=== PATIENT | female | born 1970 | race African-American/Black ===

== ENCOUNTER 2019-08-09 22:17 | Inpatient (IN) | payer BC, SELFPAY ==
[2019-08-09] MEDS ORDERED: HYDROcodone/Acetaminophen 5/325 mg Tablet ONE (23:34)
--- NOTE | 2019-08-10 00:09 | PDOC.FPRHP ---
- History of Present Illness Chief Complaint: Full-Body Pain History of Present Illness: Mrs. Monk is a 48 y/o female who presents from an outside ED following evaluation of full-body pain. The patient states that she has " hurt all over" for approximately 3 days and through that she had the flu, which prompted her presentation to the ED. She admitted to associated symptoms of subjective fevers, chills, N/V and continued diffuse pain. While being evaluated , she was found to have a UA suspicious for infection, and subsequent work-up revealed left-sided pyelonephritis and hydronephrosis secondary to mass effect from a uterine fibroid, and was subsequently transferred to [facility]. She denies any knowledge of gynecologic dysfunction in the past, as well as a history of frequent UTIs or kidney stones. She denies abnormal weight loss, changes in vision or frequent headaches, chest pain, SOB, dysuria, hematuria or bloody stools. Her neice and sister were present at the time of evaluation. ED Course: A CT scan performed at an outside hospital confirmed the findings mentioned in the HPI. The patient was offered [place] 5/325 for pain but is unable to tolerate pills at her baseline. - Allergies/Adverse Reactions Allergies Allergy/AdvReac Type Severity Reaction Status Date / Time No Known Allergies Allergy Unverified 08/10/19 01:43 - Home Medications Comments: The patient denied taking any home medications. - History PMHx: 2 SVDs, Menometrorrhagia PSHx: x1, Tubal Ligation FHx: Strong family history for breast cancer in multiple family members. Social: Patient denies EtOH, tobacco and drug abuse. Code: Full - Review of Systems General: reports: fever/chills, weight/appetite/sleep changes, fatigue. denies : night sweats Eyes: denies: eye pain, vision changes ENT: denies: nasal congestion, rhinorrhea Respiratory: denies: cough, congestion, shortness of breath, exercise intolerance Cardiovascular: denies: chest pain, palpitation, edema Gastrointestinal: reports: nausea, vomiting, abdominal pain. denies: diarrhea, constipation, GI bleeding Genitourinary: denies: dysuria, polyuria, discharge Skin: denies: rashes, lesions, itching Musculoskeletal: reports: pain, tenderness Neurological: denies: syncope, weakness - Vital signs BP: [105/59] HR: [74] RR: [20] Tmax: [99.7] Pox: [100]% on [Room] Wt: [70 kg] - Physical Exam Constitutional: other (Patient was curled up in her hospital bed and sporadically moaning in pain.) HEENT: normocephalic and atraumatic, PERRLA, conjunctiva clear, no scleral icterus, grossly normal vision, grossly normal hearing, normal nasal mucosa, MMM , oropharynx clear Neck: supple, FROM, trachea midline, no LAD Chest: no-tender to palpation, no lesions Heart: RRR, normal S1/S2, no murmurs/rubs/gallops, pulses present, no edema Lungs: CTAB, no respiratory distress, good air movement, no rales/rhonchi, no wheezing, no retractions Abdomen: soft, non-tender, bowel sounds present, other (Uterus palpable at the level of the umbilicus, irregular) Musculoskeletal: normal structure, ROM grossly normal Neurological: no focal deficit Skin: no rash/lesions, capillary refill <2 seconds, no jaundice Heme/Lymphatic: no unusual bruising or bleeding, no purpura, no petechia, no LAD Psychiatric: intact recent and remote memory FMR H&P: Results - Labs Result Diagrams: 08/10/19 11:59 08/10/19 02:12 FMR H&P: A/P - Problem List (1) Pyelonephritis Current Visit: Yes Status: Acute Code(s): N12 - TUBULO-INTERSTITIAL NEPHRITIS, NOT SPCF ACUTE OR CHRONIC (2) Uterine fibroid Current Visit: Yes Status: Acute Code(s): D25.9 - LEIOMYOMA OF UTERUS, UNSPECIFIED (3) Anemia Current Visit: Yes Status: Acute Code(s): D64.9 - ANEMIA, UNSPECIFIED - Plan Patient is a 48 y/o female admitted to the Medical Floor for pyelonephritis. 1. Pyelonephritis -Likely 2/2 to compressive effects from uterine fibroid -Urology contacted by ED physician - did not indicate emergent need for stenting , will evaluate in AM -UA (Med): +Bacteria, +RBCs -UCx (Med): Pending -CT ABD (Med): Left-sided pyelonephritis with hydronephrosis -WBCs: 13.4 -Patient does not appear septic at this time -Administered Ceftriaxone and Levaquin at outside ED - will continue Ceftriaxone 1 gm Q24H -LR @ 110 ml/hr -Acetaminophen Elixir 650 mg po Q4H for pain - patient cannot tolerate pills -Zofran 4 mg IV Q4H for nausea - patient cannot tolerate pills 2. Uterine Fibroid -Likely responsible for #1 -Patient admits to classic symptoms of menometrorrhagia -Patient may require OBGYN follow-up in an outpatient setting for curative hysterectomy 3. Anemia -HPI suspicious for blood loss anemia 2/2 #2 -H.2 on 08/10 -Peripheral smear indicated microcytic, hypochromic RBCs -Iron Studies: Pending -Patient is currently tachycardic - consider transfusing if Code: Full Diet: Heart Healthy incl. Low Sodium Activity: Ad Aster VTE PPx: Lovenox 40 mg SC Daily w/ SCDs Dispo: Patient is currently admitted to the Medicine Floor for pyelonephritis. Continue IVF and antibiotics per above. Consult Urology and OBGYN Surgery for interim management of hydronephrosis and possible hysterectomy on an outpatient basis. Expected LOS > 48H. FMR H&P: Upper Level - Pertinent history 48 y/o F no PMHx presents to the ER as a [facility] for L pyelonephritis and possible L ureter obstruction from enlarged uterus with mass. The patient reports the past couple of days she has been having N/V, F/C. She denies any dysuria, hematuria, back pain, abdominal pain. She reports urinary frequency, but that has been going on for years. She does not have a doctor and has not seen an PHOTOCOPYING EQUIPMENT REPAIRER. She reports regular periods with painful cramps and heavy cycles. She is not on any form of contraception. - Pertinent findings BP: 105/59 (Right Arm), MAP: 74, Pulse: 117, Resp: 20 (Non-Labored), Temp: 99.7 (Oral), O2 sat: 100 on (Room Air) PE: Gen - alert, oriented, NAD HEENT - MMM CV - RRR, no murmurs Lungs - CTAB, no wheezes Abd - soft, NTTP Back - No CVAT Labs: WBC 17.3, Hb 7.2, MCV 63, Na 134, BUN 13, Cr 1.2, GFR 51. UA: blood, nitrite, LE, bacteria positive. CT abd/pelvis: enlarged uterus with numerous areas of low attenuation, fibroid uterus vs neoplasm. Bilateral adnexal cystic lesions. L hydronephrosis 2/2 pyelonephritis concern for L ureter compression from enlarged uterus. - Plan Date/Time: 08/10/19 0008 I, Leidy Tillman MD, PGY-3, have evaluated this patient and agree with findings/ plan as outlined by international organizer resident. Pertinent changes/additions are listed here. 1. Acute L Pyelonephritis Pt with UA findings and CT findings consistent for pyelonephritis. Concern on CT for compression of distal L ureter from uterus. -Admit to medical -Urology was called by ED and they determined the compression did not require urgent intervention at this time, but would like to be consulted in AM -Pt s/p rocephin and levaquin. Pt is not very ill appearing and asymptomatic at this time so do not think coverage with meropenem is required. Will continue rocephin and consult urology in AM. -Urine cx and Blood cx 2. Uterine fibroids CT concerning for fibroids vs neoplasm. Pt with h/o heavy menstrual periods and severe menstrual cramps which would fit picture of fibroids -Will consult PHOTOCOPYING EQUIPMENT REPAIRER in AM -Pt may need therapy in setting of heavy menstrual bleeding, possible compression from fibroid, and severe anemia 3. Microcytic Anemia Concerning for iron deficiency anemia in the setting of pt with heavy menstrual bleeding and microcytic -Will check iron studies -Start pt on iron -Monitor Hb, likely chronically low as pt asymptomatic from this 4. [place] vs CKD Pt with unknown baseline -Will monitor and assess for improvement once infection is treated Dispo: Admit to Medical LOS: Likely greater than 2 days Addendum - Attending - Attending Attestation Date/Time: 08/10/19 3456 I personally evaluated the patient and discussed the management with the team. I agree with the History, Examination, Assessment and Plan documented above with any addition or exceptions noted below. Patient doing well with no complaint on my examination. She has no CVA pain, no abdominal pain, no body aches, f/c/n/v. No vaginal discharge. On exam she has no CVAT, abd soft NTTP with palpable uterus. Labs reviewed. I am unable to find the CSH UA. Sepsis 2/2 presumed UTI, I see no hydronephrosis -ceftriaxone -await cultures -urology was already consulted Pyo/hydrosalpinx -GC/c ordered, but low suspicion for PID Fibroids with severe iron deficiency anemia -fresh foods cake decorator has been consulted -xfuse 1 U PRBC
[2019-08-10] MEDS ORDERED: Ondansetron PF 4 MG/2 ML Vial IVP PRN (01:44)
[2019-08-10] MEDS ORDERED: Ondansetron ODT 4 MG TAB SL PRN (01:44)
[2019-08-10] MEDS ORDERED: Acetaminophen 325 MG TAB PO PRN (01:44)
[2019-08-10] MEDS ORDERED: HYDROcodone/Acetaminophen 5/325 mg Tablet PO PRN ×2 (01:44)
[2019-08-10] MEDS ORDERED: Sodium Chloride 0.9% 1,000 ML IV SCH (01:45)
[2019-08-10] MEDS ORDERED: Acetaminophen 325 MG/10.15 ML UDCUP PO PRN (01:45)
[2019-08-10 02:21] VITALS: BMI 30.2
[2019-08-10 02:28] LABS: Reticulocyte Count 1.4 % (0.5-1.5)
[2019-08-10 02:29] LABS: #Lymphocytes 0.8 thou/uL (1.20-3.40); #Monocytes 1.1 thou/uL (0.11-0.59); #Neutrophils 11.4 thou/uL (1.40-6.50); %Basophils 0.1 % (0.0-1.0); %Lymphocytes 6.1 % (21.0-51.0); %Monocytes 8.5 % (0.0-10.0); %Neutrophils 85.3 % (42.0-75.0); Hemoglobin 6.8 g/dL (12.0-16.0); Mean Corpuscular HGB CONC 29.7 g/dL (32.0-36.0); Mean Corpuscular Hemoglobin 18.3 pg (27.0-31.0); Mean Corpuscular Volume 61.7 fL (78.0-98.0); Mean Platelet Volume 5.4 fL (7.4-10.4); Platelet Count 230 thou/uL (130-400); RBC Distribution Width 17.8 % (11.5-14.5); Red Blood Cell (RBC) Count 3.69 mill/uL (4.20-5.40); Reflex for Review?? NO; White Blood Cell (WBC) Count 13.4 thou/uL (4.8-10.8)
[2019-08-10 02:41] LABS: Iron 9 ug/dL (50-170); Iron Binding Capacity, Total 293 mcg/dL (265-497)
[2019-08-10 02:42] LABS: Iron 9 ug/dL (50-170); Iron Binding Capacity, Total 293 mcg/dL (265-497)
[2019-08-10 02:50] LABS: ALT (SGPT) 8 U/L (8-55); AST (SGOT) 19 U/L (5-34); Albumin 3.3 g/dL (3.5-5.0); Alkaline Phosphatase 63 U/L (40-110); Anion Gap 15 mmol/L (10-20); BUN (Urea Nitrogen) 12 mg/dL (7.0-18.7); Bilirubin, Total 0.3 mg/dL (0.2-1.2); Calc. Creatinine Clearance 82 mL/min (70-130); Calcium 8.1 mg/dL (7.8-10.44); Carbon Dioxide 18 mmol/L (22-29); Chloride 107 mmol/L (98-107); Estimated GFR-MDRD 79; Globulin 3.5 g/dL (2.4-3.5); Glucose 112 mg/dL (70-105); Potassium 3.5 mmol/L (3.5-5.1); Protein, Total 6.8 g/dL (6.0-8.3); Sodium 136 mmol/L (136-145)
[2019-08-10 03:00] LABS: Hypochromia SLIGHT = 6-15 cells (100X) (0-5/hpf); MDiff Complete? YES; Microcytosis MODERATE=15-30 cells (100X) (0-5/hpf); Platelet Morphology Comment Appears Adequate; Target Cells SLIGHT = 2-5 cells (100X) (0-1/hpf)
[2019-08-10] MEDS ORDERED: Ondansetron ODT 4 MG TAB PO PRN (03:17)
[2019-08-10] MEDS: Lactated Ringer's 1,000 ML IV SCH ×3 (06:25→21:08)
[2019-08-10] MEDS: Enoxaparin Sodium 40 MG/0.4 ML SYRINGE SC SCH (11:33)
[2019-08-10] MEDS: Famotidine/PF 20 mg/2ml Vial SLOW IVP SCH ×2 (11:33→21:04)
[2019-08-10 12:12] LABS: Hemoglobin 8.2 g/dL (12.0-16.0)
[2019-08-10] MEDS: cefTRIAXone\\ROCEPHIN 1 GM in Sodium Chloride 0.9% 100 ML IVPB SCH (13:32)
--- NOTE | 2019-08-10 13:32 | ULT ---
Exam: Pelvic ultrasound HISTORY: Diffuse abdominal pain greater in the region of the right lower quadrant. COMPARISON: CT abdomen and pelvis on 08/30/2009. TECHNIQUE: Multiple grayscale and color Doppler images were obtained in a transabdominal and transvag inal pelvic ultrasound. Spectral analysis of the Doppler waveforms of the ovaries were performed. FINDINGS: CERVIX: Not well visualized as there is prominent shadowing in the region of the cervix. UTERUS: Enlarged measuring 16.5 cm x 9.2 cm x 2.3 cm. There is a very large heterogeneous mass occupy ing the majority of the body and fundus of the uterus. Heterogeneous mass was seen in the uterus on prior CT examination. Findings are likely related to a large uterine fibroid with is larger in size c ompared to the prior study. ENDOMETRIAL STRIPE: Endometrial stripe is unable to be discerned due to the large heterogeneous mass in the uterus. There is no fluid or fluid collection seen in the expected location of the endometrium. RIGHT OVARY: Not visualized. LEFT OVARY:Not definitively visualized, but there is a anechoic cystic structure seen in the left adn exal region measuring 4.6 cm which may represent a left ovarian cyst. Definitive ovarian tissue is difficult to visualized. There is an arterial waveform seen on Doppler evaluation at the periphery of this left adnexal cyst. This may represent an ovarian cyst. This is difficult to further evaluated on this exam. There are 2 small anechoic cystic structures seen posterior to the uterus largest measuring 4.7 cm. T hese anechoic cystic structures are difficult to connect to one another. Dilated fluid-filled tubular structures were seen in each adnexal region on study in 2010. This could be related to hydros alpinx, but but this may represent 2 separate cystic structures as opposed to a single dilated appearing cystic structure. No free fluid is seen in the cul-de-sac. IMPRESSION: 1. Enlarged uterus with very large heterogeneous mass occupying the majority of the uterus likely due to large uterine fibroid which has enlarged compared to study in 2010. 2. The right ovary is not visualized. A cyst is seen in the left adnexal region in the expected locat ion left ovary, and this may represent a left ovarian cyst. However normal ovarian tissue is not definitively visualized. Doppler evaluation of the periphery of this cystic lesion does demonstrate a rterial and venous flow. 3. Anechoic cystic structures posterior to the uterus. This could potentially represent hydrosalpinx, but the cystic structures are difficult to connect to one another on real time sonographic evaluation. Findings may be related to cystic lesions posterior to the uterus. 4. Patient has MRI of the pelvis scheduled, and above findings would be better delineated on that exa mination.
--- NOTE | 2019-08-10 19:21 | CON ---
DATE OF CONSULTATION: 08/10/2019 CONSULTING PHYSICIAN: Lopez Rehman MD REASON FOR CONSULTATION: Gynecologic consultation for fibroids and menorrhagia. HISTORY OF PRESENT ILLNESS: Ms. Monk is a 48-year-old 4, para 3, AB 1, x1, status post BTL, who was admitted for pyelonephritis. She was incidentally found to be anemic with indices that appeared to be consistent with chronic anemia and found to have uterine mass. I was consulted for anemia history and mass. BURIAL VAULT MAKER HISTORY: The patient states it has been many years since she had a Pap smear. No history of dysplasia. No history of STDs. x2. x1. BTL x1. The patient reports she has no intermenstrual bleeding. She reports she has monthly menses with flow requiring a large maxi pad q.1 to 2 hours for 3 days a month. PAST MEDICAL HISTORY: None. PAST SURGICAL HISTORY: and tubal. ALLERGIES: DENIES. MEDICATIONS: None. SOCIAL HISTORY: Denies tobacco, alcohol, or IV drug abuse. FAMILY HISTORY: Positive for breast cancer between ages of 38 and 58 and multiple female family members. PHYSICAL EXAMINATION: VITAL SIGNS: Temperature 99.6, pulse 106, respirations 18, blood pressure 120/78. HEENT: Within normal limits. LUNGS: Clear to auscultation bilaterally. HEART: Regular rate and rhythm. ABDOMEN: Soft and nontender. GENITOURINARY: She has a palpable approximately 10 week size uterus. Well-healed Pfannenstiel incision. PELVIC: Exam deferred as the patient was in medicine room with no available pelvic exam table. EXTREMITIES: Without clubbing, cyanosis, or edema. LABORATORY DATA: The patient's urinalysis in [place] was, by report, consistent with pyelonephritis. Admission hematocrit was 22.8% after IV fluid hydration. She had a white count of 13.4 with a left shift. She had polychromasia and other indices consistent with chronic blood loss. Creatinine was 0.9. Urine culture pending. IMAGING: The patient had a pelvic ultrasound and CT at [place] and a CT at outside facility that revealed a simple ovarian cyst, hydrosalpinx consistent with status post BTL and a large intracavitary calcified and homogeneous mass consistent with a large intracavitary fibroid approximately 10 cm in greatest diameter. 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 Ultrasound appearance and patient's history makes it unlikely that leiomyoma is malignant or represent other pathologic process. The patient's pyelonephritis is likely unrelated to her fibroids as uterus is not big enough to obstruct ureters either on the right or the left. PLAN: 1. IV iron infusion. 2. IV Provera as patient states she cannot take pills. 3. Patient needs to follow up with me or other physician at [facility] [place] as an outpatient for endometrial biopsy and Pap smear and scheduling for hysterectomy. 4. Social work consult as patient is unfunded for surgical intervention at this time. Job ID: [id number]
[2019-08-10] MEDS: Iron Sucrose Complex 500 MG in Sodium Chloride 0.9% 250 ML 250 ML IVPB SCH (21:05)
[2019-08-10] MEDS: medroxyPROGESTERone Acetate 5 MG TAB PO SCH (21:06)
[2019-08-10] MEDS: Acetaminophen 650 MG/20.3 ML UDCUP PO PRN (21:09)
[2019-08-11] MEDS: Acetaminophen 650 MG/20.3 ML UDCUP PO PRN ×2 (02:59→13:51)
--- NOTE | 2019-08-11 05:57 | PDOC.FM ---
- Subjective Subjective: Patient states she is feeling okay this morning. Says that she started her menses overnight, has used 3 pads during the night. Complains of some cramping and lower abdominal pain, worse on the left side. Also says she feels "full"/ constipated. Dr. Rehman saw the patient yesterday and told her they will work on scheduling hysterectomy outpatient. - Objective Vital Signs & Weight: Vital Signs (12 hours) Temp Pulse Resp BP Pulse Ox 08/11/19 05:07 97.9 F 99 19 127/64 97 08/11/19 00:48 97.3 F L 84 19 109/69 99 08/10/19 20:12 99.9 F H 100 20 113/71 99 08/10/19 20:00 99 Weight Weight 70.307 kg Most Recent Monitor Data Heart Rate from ECG 104 NIBP 118/74 Respiration from ECG 16 I&O: 08/09/19 08/10/19 08/11/19 06:59 06:59 06:59 Intake Total 0 Balance 0 Result Diagrams: 08/11/19 06:09 08/11/19 05:59 Phys Exam - Physical Examination Constitutional: NAD HEENT: moist MMs Neck: supple, full ROM Respiratory: no wheezing, no rhonchi, clear to auscultation bilateral Cardiovascular: RRR, no significant murmur Gastrointestinal: soft, no distention, positive bowel sounds TTP LLQ, RLQ, & Suprapubic area Musculoskeletal: no edema, pulses present Neurological: normal sensation, moves all 4 limbs Psychiatric: normal affect, A&O x 3 Skin: no rash, normal turgor Dx/Plan (1) Anemia Code(s): D64.9 - ANEMIA, UNSPECIFIED Status: Acute Qualifiers: Anemia type: iron deficiency Iron deficiency anemia type: chronic blood loss Qualified Code(s): D50.0 - Iron deficiency anemia secondary to blood loss (chronic) (2) Pyelonephritis Code(s): N12 - TUBULO-INTERSTITIAL NEPHRITIS, NOT SPCF ACUTE OR CHRONIC Status: Acute (3) Uterine fibroid Code(s): D25.9 - LEIOMYOMA OF UTERUS, UNSPECIFIED Status: Acute Qualifiers: Uterine leiomyoma location: unspecified location Qualified Code(s): D25.9 - Leiomyoma of uterus, unspecified - Plan Plan: Patient is a 48 y/o female admitted to the Medical Floor for pyelonephritis. #Pyelonephritis, left -concerning for 2/2 to compressive effects from uterine fibroid -Urology contacted by ED physician - did not indicate emergent need for stenting , consult placed, appreciate recs -UA (Med): +Bacteria, +RBCs -UCx (Med): Pending -CT ABD (Med): Left-sided pyelonephritis with hydronephrosis, renal mass vs cyst , lung nodule with reactive lymph nodes, recommended f/u MRI -WBCs: 13.4 -Patient does not appear septic at this time -Administered Ceftriaxone and Levaquin at outside ED - will continue Ceftriaxone 1 gm Q24H -LR @ 110 ml/hr -Acetaminophen Elixir 650 mg po Q4H for pain - patient cannot tolerate pills -Zofran 4 mg IV Q4H for nausea - patient cannot tolerate pills #Uterine Fibroid -Patient admits to classic symptoms of menometrorrhagia -Patient will require OBGYN follow-up in an outpatient setting for curative hysterectomy -Consult SENIOR ASIC ENGINEER, Dr. Rehman-appreciate recs. Ordered iron infusion. Possible hydrosalpinx visualized on CT, wants f/u pelvic U/S. States patient will need outpatient pap and endometrial biopsy prior to hysterectomy. Will need to be set up with social work for funding. Patient starting her menses, start on Medroxyprogesterone 10 mg BID. Can start Tranexamic acid 1000 BID if needed for heavy bleeding. -Pelvic U/S: 16.5 cm x 9.2 cm x 2.3 cm uterus with large heterogenous mass approx. 10 cm in size within uterus c/w fibroid, left ovarian cyst, cystic structures located posterior to uterus concerning for possible hydrosalpinx, recommend f/u MRI #Anemia -HPI suspicious for blood loss anemia 2/2 #2 -H.2 on 08/10-> 6.8 -> 8.2 -Peripheral smear indicated microcytic, hypochromic RBCs -Iron Studies: iron 9, TIBC 293, 3% sat, Ferritin 40.9 -Continue to trend H/H Code: Full Diet: Heart Healthy incl. Low Sodium Activity: Ad Aster VTE PPx: Lovenox 40 mg SC Daily w/ SCDs Dispo: Patient is currently admitted to the Medicine Floor for pyelonephritis. Continue IVF and antibiotics per above. Consulted Urology and OBGYN Surgery for interim management of hydronephrosis and possible hysterectomy on an outpatient basis. Expected discharge in next 24-48 hrs. Addendum - Attending - Attending Attestation Date/Time: 08/11/19 1053 I personally evaluated the patient and discussed the management with the team. I agree with the History, Examination, Assessment and Plan documented above with any addition or exceptions noted below. Continue current management. Await cultures.
[2019-08-11] MEDS: Lactated Ringer's 1,000 ML IV SCH (06:33)
[2019-08-11 06:39] LABS: #Lymphocytes 1.1 thou/uL (1.20-3.40); #Monocytes 1.4 thou/uL (0.11-0.59); #Neutrophils 9.5 thou/uL (1.40-6.50); %Basophils 0.2 % (0.0-1.0); %Eosinophils 0.2 % (0.0-10.0); %Lymphocytes 9.4 % (21.0-51.0); %Monocytes 11.4 % (0.0-10.0); %Neutrophils 78.7 % (42.0-75.0); Hemoglobin 8.2 g/dL (12.0-16.0); Mean Corpuscular HGB CONC 30.7 g/dL (32.0-36.0); Mean Corpuscular Hemoglobin 19.7 pg (27.0-31.0); Mean Corpuscular Volume 64.2 fL (78.0-98.0); Mean Platelet Volume 5.6 fL (7.4-10.4); Platelet Count 243 thou/uL (130-400); RBC Distribution Width 20.5 % (11.5-14.5); Red Blood Cell (RBC) Count 4.19 mill/uL (4.20-5.40); White Blood Cell (WBC) Count 12.1 thou/uL (4.8-10.8)
[2019-08-11 07:07] LABS: ALT (SGPT) 10 U/L (8-55); AST (SGOT) 29 U/L (5-34); Albumin 3.1 g/dL (3.5-5.0); Alkaline Phosphatase 66 U/L (40-110); Anion Gap 11 mmol/L (10-20); BUN (Urea Nitrogen) 8 mg/dL (7.0-18.7); Bilirubin, Total 0.2 mg/dL (0.2-1.2); Calc. Creatinine Clearance 92 mL/min (70-130); Calcium 8.4 mg/dL (7.8-10.44); Carbon Dioxide 23 mmol/L (22-29); Chloride 110 mmol/L (98-107); Estimated GFR-MDRD Greater than 90; Globulin 3.5 g/dL (2.4-3.5); Glucose 105 mg/dL (70-105); Potassium 3.6 mmol/L (3.5-5.1); Protein, Total 6.6 g/dL (6.0-8.3); Sodium 140 mmol/L (136-145)
[2019-08-11 07:07] LABS: Hypochromia MODERATE=16-30 cells (100X) (0-5/hpf); MDiff Complete? YES; Microcytosis MODERATE=15-30 cells (100X) (0-5/hpf); Ovalocytes SLIGHT = 2-5 cells (100X) (0-1/hpf); Platelet Morphology Comment Appears Adequate; Polychromasia SLIGHT = 2-3 cells (100X) (0-2/hpf); Tear Drops SLIGHT = 2-5 cells (100X) (0-1/hpf)
[2019-08-11] MEDS ORDERED: Polyethylene Glycol 3350 17 GM Packet PO PRN (08:53)
[2019-08-11] MEDS ORDERED: Senokot 8.6 MG TAB PO SCH (09:00)
[2019-08-11] MEDS: Iron Sucrose Complex 500 MG in Sodium Chloride 0.9% 250 ML 250 ML IVPB SCH (09:25)
[2019-08-11] MEDS: medroxyPROGESTERone Acetate 5 MG TAB PO SCH ×2 (09:25→20:43)
[2019-08-11] MEDS: Polyethylene Glycol 3350 17 GM Packet PO SCH (09:25)
[2019-08-11] MEDS: Enoxaparin Sodium 40 MG/0.4 ML SYRINGE SC SCH (09:25)
[2019-08-11] MEDS: Famotidine/PF 20 mg/2ml Vial SLOW IVP SCH ×2 (09:25→20:43)
[2019-08-11] MEDS ORDERED: Morphine 4 MG/ML VIAL ONE (13:23)
[2019-08-11] MEDS: cefTRIAXone\\ROCEPHIN 1 GM in Sodium Chloride 0.9% 100 ML IVPB SCH (13:26)
[2019-08-11] MEDS ORDERED: Morphine 2 MG/ML SYRINGE SLOW IVP SCH (14:15)
--- NOTE | 2019-08-12 05:55 | PDOC.FM ---
- Subjective Subjective: Patient states she feels better this morning. Her abdominal pain/cramping has been controlled with liquid Tylenol. Says she slept well overnight. She has been tracking how many pads she is using for menses, used 4 pads in span of 7 hours overnight. - Objective Vital Signs & Weight: Vital Signs (12 hours) Temp Pulse Resp BP Pulse Ox 08/12/19 00:42 97.8 F 89 16 100/62 100 08/11/19 20:00 100 08/11/19 19:46 98.5 F 97 16 106/70 100 Weight Weight 70.307 kg Most Recent Monitor Data Heart Rate from ECG 104 NIBP 118/74 Respiration from ECG 16 I&O: 08/10/19 08/11/19 08/12/19 06:59 06:59 06:59 Intake Total 1300 120 Balance 1300 120 Result Diagrams: 08/12/19 05:57 08/11/19 05:59 Phys Exam - Physical Examination Constitutional: NAD HEENT: moist MMs Neck: supple, full ROM Respiratory: no wheezing, no rales, no rhonchi, clear to auscultation bilateral Cardiovascular: RRR, no significant murmur Gastrointestinal: soft, non-tender, positive bowel sounds palpable uterus Musculoskeletal: no edema, pulses present Neurological: normal sensation, moves all 4 limbs Psychiatric: normal affect, A&O x 3 Skin: no rash, normal turgor Dx/Plan (1) Anemia Code(s): D64.9 - ANEMIA, UNSPECIFIED Status: Acute Qualifiers: Anemia type: iron deficiency Iron deficiency anemia type: chronic blood loss Qualified Code(s): D50.0 - Iron deficiency anemia secondary to blood loss (chronic) (2) Pyelonephritis Code(s): N12 - TUBULO-INTERSTITIAL NEPHRITIS, NOT SPCF ACUTE OR CHRONIC Status: Acute (3) Uterine fibroid Code(s): D25.9 - LEIOMYOMA OF UTERUS, UNSPECIFIED Status: Acute Qualifiers: Uterine leiomyoma location: unspecified location Qualified Code(s): D25.9 - Leiomyoma of uterus, unspecified - Plan Plan: Patient is a 48 y/o female admitted to the Medical Floor for pyelonephritis. #Pyelonephritis, left -concerning for 2/2 to compressive effects from uterine fibroid although compression felt to be less likely at this time -Urology contacted by ED physician - did not indicate emergent need for stenting , consult placed, appreciate recs -UA (Med): +Bacteria, +RBCs -UCx (Med): Pending, checked with Med lab and [facility] lab on 08/11 and unable to find culture. Med lab states they have no record of the patient in [employer]. -CT ABD (Med): Left-sided pyelonephritis with hydronephrosis, renal mass vs cyst , lung nodule with reactive lymph nodes, recommended f/u MRI -WBCs: 13.4 -> 12 -Patient does not appear septic at this time -Administered Ceftriaxone and Levaquin at outside ED - will continue Ceftriaxone 1 gm Q24H for 3 total doses given unable to obtain cultures & patient's intolerance of taking pills. Will transition to 7 day course of PO antibiotic today with instructions to crush pills before taking. -LR @ 110 ml/hr--discontinued on 08/11 -Acetaminophen Elixir 650 mg po Q4H for pain - patient cannot tolerate pills -Zofran 4 mg IV Q4H for nausea - patient cannot tolerate pills #Uterine Fibroid -Patient admits to classic symptoms of menometrorrhagia -Patient will require OBGYN follow-up in an outpatient setting for curative hysterectomy -Consult AGRICULTURAL RESEARCH DIRECTOR, Dr. Rehman-appreciate recs. Ordered iron infusion. Possible hydrosalpinx visualized on CT, wants f/u pelvic U/S. States patient will need outpatient pap and endometrial biopsy prior to hysterectomy. Will need to be set up with social work for funding. Patient starting her menses, start on Medroxyprogesterone 10 mg BID. Can start Tranexamic acid 1000 BID if needed for heavy bleeding. -Pelvic U/S: 16.5 cm x 9.2 cm x 2.3 cm uterus with large heterogenous mass approx. 10 cm in size within uterus c/w fibroid, left ovarian cyst, cystic structures located posterior to uterus concerning for possible hydrosalpinx, recommend f/u MRI -Started menses on 08/11, instructed to keep count of pads used, will start short course of Tranexamic acid #Anemia -HPI suspicious for blood loss anemia 2/2 #2 -H.2 on 08/10-> 6.8 -> 8.2 -Peripheral smear indicated microcytic, hypochromic RBCs -Iron Studies: iron 9, TIBC 293, 3% sat, Ferritin 40.9 -Continue to trend H/H Code: Full Diet: Heart Healthy incl. Low Sodium Activity: Ad Aster VTE PPx: Lovenox 40 mg SC Daily w/ SCDs Dispo: Patient is currently admitted to the Medicine Floor for pyelonephritis. Completed 3 day course of Rocephin. Will need to be set up with OBGYN Surgery outpatient for possible hysterectomy. Expected discharge later today. Addendum - Attending - Attending Attestation Date/Time: 08/12/19 1012 I personally evaluated the patient and discussed the management with Dr. Arciniega. I agree with the History, Examination, Assessment and Plan documented above with any addition or exceptions noted below. The patient is feeling better. Back pain improving. HB stable. Will d/c home.
[2019-08-12 06:23] LABS: Mean Corpuscular HGB CONC 30.7 g/dL (32.0-36.0); Mean Corpuscular Hemoglobin 19.8 pg (27.0-31.0); Mean Corpuscular Volume 64.4 fL (78.0-98.0); Mean Platelet Volume 4.8 fL (7.4-10.4); Platelet Count 252 thou/uL (130-400); RBC Distribution Width 20.4 % (11.5-14.5); Red Blood Cell (RBC) Count 4.02 mill/uL (4.20-5.40)
[2019-08-12 07:00] LABS: #Eosinphils 0.1 thou/uL (0.0-0.7); #Lymphocytes 1.3 thou/uL (1.20-3.40); #Monocytes 1.2 thou/uL (0.11-0.59); #Neutrophils 8.3 thou/uL (1.40-6.50); %Basophils 0.1 % (0.0-1.0); %Eosinophils 0.9 % (0.0-10.0); %Lymphocytes 12.2 % (21.0-51.0); %Monocytes 11.3 % (0.0-10.0); %Neutrophils 75.5 % (42.0-75.0); Anisocytosis SLIGHT = 6-15 cells (100X) (0-5/hpf); Hypochromia MODERATE=16-30 cells (100X) (0-5/hpf); MDiff Complete? YES; Microcytosis MODERATE=15-30 cells (100X) (0-5/hpf); Tear Drops SLIGHT = 2-5 cells (100X) (0-1/hpf)
[2019-08-12 07:41] VITALS: BP 105/69; TEMP 97.9
[2019-08-12] MEDS: medroxyPROGESTERone Acetate 5 MG TAB PO SCH (08:23)
[2019-08-12] MEDS: Famotidine/PF 20 mg/2ml Vial SLOW IVP SCH (08:24)
[2019-08-12] MEDS: Polyethylene Glycol 3350 17 GM Packet PO SCH (08:24)
[2019-08-12] MEDS: Enoxaparin Sodium 40 MG/0.4 ML SYRINGE SC SCH (08:35)
[2019-08-13 22:26] LABS: Chlam.trachomatis by PCR,Urine Not Detected (NotDetected)
--- NOTE | 2019-08-14 12:10 | DIS ---
DATE OF ADMISSION: 08/09/2019 DATE OF DISCHARGE: 08/12/2019 ADMITTING ATTENDING: Tessie Mcdonough MD DISCHARGE ATTENDING: Debo Page MD CONSULTS: 1. Urology, Dr. Leon. 2. WHOLESALE REPRESENTATIVE, Dr. Rehman. PROCEDURES: Pelvic ultrasound on August 10, 2019: Enlarged uterus with a very large heterogeneous mass occupying the majority of the uterus, likely due to large uterine fibroid, which has enlarged compared to a study in 2010. A cyst is seen on the left adnexal region in the expected location of the left ovary, which may represent a left ovarian cyst, however, normal ovarian tissue is not definitively visualized. Doppler evaluation of the periphery of the cystic lesion does demonstrate arterial and venous flow. Anechoic cystic structures posterior to the uterus, could potentially represent hydrosalpinx or related to cystic lesions posterior to the uterus. Please see full report for more detail. PRIMARY DIAGNOSIS: Pyelonephritis, left. SECONDARY DIAGNOSES: 1. Uterine fibroid. 2. Abnormal uterine bleeding. 3. Anemia. DISCHARGE MEDICATIONS: 1. Acetaminophen 650 mg p.o. q.4 hours p.r.n. for pain. 2. Ciprofloxacin 500 mg p.o. b.i.d. for 7 days. 3. Medroxyprogesterone acetate (Provera) 10 mg p.o. b.i.d. for 9 days. 4. Tranexamic acid 1300 mg p.o. b.i.d. for 3 days. DISCONTINUED MEDICATIONS: None. HPI/HOSPITAL COURSE: The patient is a 48-year-old female, who presents to the emergency department as a transfer from [facility] following evaluation of full body pain. The patient stated that she has "hurt all over" for the last 3 days, and thought she had the flu, which prompted her presentation to the ED. She admitted to associated symptoms of subjective fevers, chills, nausea, vomiting, and continued diffuse pain. While being evaluated, she was found to have a UA suspicious for infection and subsequent workup revealed left-sided pyelonephritis and hydronephrosis secondary to suspected mass effect from the uterine fibroid. She was subsequently transferred to [facility]. The patient denies a history of UTIs or kidney stones. She does admit to a history of abnormal uterine bleeding, for which she has a known fibroid in the past evaluated in 2010. The patient denied any abnormal weight loss, change in vision, or frequent headaches, chest pain, shortness of breath, dysuria, hematuria, or bloody stools. In the emergency department, a CT of the abdomen was performed at [facility], which confirmed the findings of pyelonephritis. The patient was offered oral pain medication, but stated that she was unable to tolerate pills at her baseline and has refused those medications. The patient was admitted to the medical unit for acute left pyelonephritis. Urology was consulted and they determined that the compression from the uterine fibroid onto the left ureter did not require urgent intervention at this time. WHOLESALE REPRESENTATIVE was consulted, which felt that the uterine fibroid was not causing a mass effect on the ureter. However, they were concerned that the fibroid had enlarged greatly compared to studies in 2010 and thus recommended a hysterectomy. However, this can be done on an outpatient basis. On August 10, 2019, the patient's hemoglobin was found to be 6.8 and she required 1 unit of PRBCs transfusion. Subsequent repeat hemoglobin was trended to be stable around 8.0. The patient's blood and urine cultures were lost and transitioned between [facility] in [facility]. Due to the patient's UA findings of concern for infection, the patient was continued for full course on Rocephin. She was then transitioned to ciprofloxacin upon discharge for a full course of 7 days. On the second day of admission, the patient started her menses. She bled very heavily, requiring 4 to 5 pads in the span of 6 hours. She was started on medroxyprogesterone by WHOLESALE REPRESENTATIVE. This was transitioned to tranexamic acid that will be continued for additional 3 days upon discharge. The patient also needs to complete a full course of medroxyprogesterone of 10 days. On the morning of August 12, the patient was deemed clinically stable for discharge back to home. She was counseled that she will need to continue taking pills for her current conditions and the patient agrees to crush her pills in place and liquid or soft solids in order to take her medications. The patient will require close outpatient followup with WHOLESALE REPRESENTATIVE for a planned hysterectomy in the near future. We will also need to follow up with her PCP at [facility]. DISPOSITION: Stable. DISCHARGE INSTRUCTIONS: 1. Location: Home. 2. Diet: Regular. 3. Activity: As tolerated. 4. Follow up with Dr. Rehman at [facility] in 3 to 5 days. 5. Follow up with PCP at [facility] in 3 to 5 days. Job ID: [id number]
== END 2019-08-12 11:42 | disposition home or self-care (01) | DRG 690 ==
LOC: ERS 22:17 → T4-A 23:33
PROVIDERS: ADMIT Student in an Organized Health Care Education/Training Program; ATTEND Student in an Organized Health Care Education/Training Program
DX: N10 Acute pyelonephritis (principal); D50.0 Iron deficiency anemia secondary to blood loss (chronic); N13.30 Unspecified hydronephrosis; D25.9 Leiomyoma of uterus, unspecified; N70.11 Chronic salpingitis; N83.202 Unspecified ovarian cyst, left side; N92.1 Excessive and frequent menstruation with irregular cycle; Z98.51 Tubal ligation status; Z80.3 Family history of malignant neoplasm of breast
CPT/HCPCS: 36415; 36430; 76856; 80053; 82274; 82728; 83540; 83550; 85025; 85046; 85060; 86850; 86900; 86901; 87491; 87591; 93976; 99284; J0696; J1650; J1756; J2270; J3490; J7050; P9016; S0028